=== PATIENT | female | born 1990 | race Caucasian/White ===

== ENCOUNTER 2021-07-29 14:49 | Inpatient (IN) ==
[2021-07-29 15:57] LABS: Bacteria,Urine Few per hpf (None-Few); Bilirubin,Urine Negative (Negative); Blood,Urine Negative (Negative); Clarity,Urine Clear (Clear); Color,Urine Light-Yellow (Yellow); Glucose,Urine (UA) Normal (Normal); Ketones,Urine Negative (Negative); Leukocyte Esterase,Urine Moderate (Negative); Mucus,Urine Few per lpf (None-Few); Nitrite,Urine Negative (Negative); Protein,Urine Trace mg/dL (Neg-Trace); Specific Gravity,Urine 1.011 (1.010-1.025); Squamous Epithelial Cell,Urine Moderate per hpf (None-Few); Urobilinogen,Urine Normal (Normal); WBC,Urine 0-3 per hpf (0-3)
[2021-07-29 16:07] LABS: Amphetamine Screen,Urine Negative ng/mL (Cutoff=1000); Barbiturate Screen,Urine Negative ng/mL (Cutoff=200); Benzodiazepines Screen,Urine Negative ng/mL (Cutoff=200); Cannabinoid Screen,Urine Negative ng/mL (Cutoff = 50); Cocaine Screen,Urine Negative ng/mL (Cutoff= 300); Opiate Screen,Urine Negative ng/mL (Cutoff=300); Phencyclidine Screen,Urine Negative ng/mL (Cutoff=25)
[2021-07-29 16:14] LABS: Basophils % 0.5 %; Eosinophils # 0.1 K/mcL (0.0-0.6); Eosinophils % 1.8 %; Hematocrit 37.5 % (35.3-44.9); Hemoglobin 11.7 g/dL (11.5-15.4); Immature Granulocytes % 0.3 % (0-4); Lymphocytes % 25.9 %; Mean Corpuscular HGB Conc 31.2 g/dL (31.6-35.5); Mean Corpuscular Hemoglobin 24.7 pg (28.0-33.3); Mean Corpuscular Volume 79.1 fL (83.0-100.0); Mean Platelet Volume 10.4 fL (9.4-12.4); Monocytes # 0.4 K/mcL (0.0-1.3); Monocytes % 5.6 %; Neutrophils # 5.1 K/mcL (1.6-8.9); Platelet Count 292 K/mcL (140-400); Red Blood Count 4.74 M/mcL (3.82-4.97); Red Cell Distribution Width 14.9 % (11.5-14.5); Segmented Neutrophils % 65.9 %; White Blood Count 7.7 K/mcL (4.3-11.1)
[2021-07-29 16:27] LABS: Estimated Average Glucose 91 mg/dl; Hemoglobin A1C 4.8 %
[2021-07-29 16:40] LABS: Acetaminophen < 10 mcg/mL (10-20); Alanine Aminotransferase 20 Units/L (7-52); Albumin 4.3 g/dL (3.5-5.7); Albumin/Globulin Ratio 1.3 (1.1-2.2); Alkaline Phosphatase 57 Units/L (34-104); Aspartate Amino Transferase 16 Units/L (13-39); BUN/Creatinine Ratio 12 (6-26); Bilirubin,Indirect 0.3 mg/dL (0.0-1.0); Bilirubin,Total 0.3 mg/dL (0.3-1.0); Blood Urea Nitrogen 10 mg/dL (6-20); Calcium 9.6 mg/dL (8.6-10.3); Carbon Dioxide 24 mEq/L (23-29); Chloride 105 mEq/L (98-107); Chol/HDL Ratio 4.1 (0-4.9); Cholesterol 144 mg/dL (< 200); Ethanol < 10 mg/dL (Less than 10); Globulin 3.2 g/dL (2.4-3.5); Glucose 89 mg/dL (70-105); HDL Cholesterol 35 mg/dL (40-59); LDL Cholesterol,Calculated 83 mg/dL (< 100); Osmolality,Calculated 281 (280-300); Potassium 3.9 mEq/L (3.5-5.1); Salicylate < 2.5 mg/dL (15.0-30.0); Sodium 136 mEq/L (136-145); Thyroid Stimulating Hormone 7.944 mcIU/mL (0.340-5.600); Total Protein 7.5 g/dL (6.4-8.9); Triglycerides 129 mg/dL (< 150); eGFR For African Americans > 60 (> 60); eGFR For Non-African Americans > 60 (> 60)
[2021-07-29 20:03] LABS: Influenza A PCR Negative (Negative); Influenza B PCR Negative (Negative); Resp. Syncytial Virus PCR Negative (Negative); SARS-CoV-2 by PCR (In House) Negative (Negative)
[2021-07-29] MEDS ORDERED: *HR* LORazepam 1 MG TABLET PO PRN (20:05)
[2021-07-29] MEDS ORDERED: haloperidoL 5 MG TABLET PO PRN (20:05)
[2021-07-29] MEDS ORDERED: *HR* LORazepam 2 MG/ML VIAL IM PRN (20:05)
[2021-07-29] MEDS ORDERED: Haloperidol Lactate 5 MG/ML VIAL IM PRN (20:05)
[2021-07-29] MEDS: Nicotine 2 MG GUM BC PRN (21:08)
[2021-07-29] MEDS: hydrOXYzine pamoate 25 MG CAPSULE PO PRN (22:32)
[2021-07-29] MEDS: traZODone 50 MG TABLET PO PRN (22:32)
[2021-07-30] MEDS ORDERED: Lurasidone 20 MG TABLET PO SCH (09:00)
[2021-07-30] MEDS: METHYLPHENIDATE HCL 27 MG PO SCH (10:37)
[2021-07-30] MEDS: Nicotine 2 MG GUM BC PRN ×2 (10:39→16:12)
[2021-07-30] MEDS ORDERED: MOM Conc 10 ML UD.LIQ PO PRN (11:09)
[2021-07-30] MEDS: hydrOXYzine pamoate 25 MG CAPSULE PO PRN (19:33)
[2021-07-30] MEDS: traZODone 50 MG TABLET PO PRN (20:30)
[2021-07-30] MEDS ORDERED: ARIPiprazole 5 MG TABLET PO SCH (21:00)
[2021-07-31] MEDS ORDERED: Melatonin 3 MG TABLET PO PRN (09:04)
[2021-07-31] MEDS: Nicotine 2 MG GUM BC PRN ×3 (09:08→18:29)
[2021-07-31] MEDS: ARIPiprazole 5 MG TABLET PO SCH (09:35)
[2021-07-31] MEDS: METHYLPHENIDATE HCL 27 MG PO SCH (09:36)
[2021-07-31] MEDS: modafiniL 100 MG TABLET PO SCH (11:57)
[2021-07-31] MEDS: Mag Hydrox/Al Hydrox/Simeth 30 ML UDC PO PRN ×2 (15:34→20:44)
[2021-08-01] MEDS: ARIPiprazole 5 MG TABLET PO SCH (08:06)
[2021-08-01] MEDS: modafiniL 100 MG TABLET PO SCH ×2 (08:06→11:56)
[2021-08-01] MEDS: METHYLPHENIDATE HCL 27 MG PO SCH (08:16)
[2021-08-01 09:26] VITALS: BP 123/88; PULSE 93; TEMP 98.4; O2SAT 97
[2021-08-01] MEDS: Nicotine 2 MG GUM BC PRN ×2 (11:41→14:41)
== END 2021-08-01 16:34 | disposition home or self-care (01) | DRG 753 ==
LOC: EMEROOARM 14:49 → 1ANU 20:19
PROVIDERS: ADMIT Psychiatry & Neurology Psychiatry; ATTEND Psychiatry & Neurology Psychiatry